=== PATIENT | female | born 1995 | race Caucasian/White ===

== ENCOUNTER 2025-04-23 08:23 | Outpatient (AMB) | payer OTHER, SELFPAY ==
--- NOTE | 2025-04-23 09:16 | A.OFFVIS_ITS ---
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 60.8: Details: Start time: 9.03am, End time: 9.56am ?I spent 48 minutes speaking with the patient on the phone plus an additional 5 minutes reviewing and updating records for a total of 53 minutes HPI Comments Details: Previous weight loss efforts: exercise, Mehdi for 4mths: no weight loss, Zepbound: 20lbs stopped to GI side effects) Wakes up: 6am -9am, Sleeps: 9.30am to 12am Breakfast: 8.30am (eggs and pine apple) Lunch: 12.30pm (turkey sandwich) Dinner: 6-7.30pm (chicken, salmon, shrimp, rice, potatoes, vegetables) Snacks: 3-4pm (chips, grapes, cheese), 8pm (ice cream) Exercise: has home treadmill (no incline, does not track calories) Beverages: Coffee (1 cup/d with creamer), Tea: (1 cup/day, plain), Soda: rarely Sprite zero, Juice: none, ETOH: 1-2/mth [facility] Medical History (Updated 04/23/25 @ 09:24 by Lamont Sanchez MD) DJD (degenerative joint disease) Obstructive sleep apnea on CPAP Anxiety Depression Morbid obesity Surgical History (Updated 04/09/25 @ 09:21 by Kristen Taylor CMA) No history of previous surgery Family History (Updated 04/09/25 @ 08:29 by Kristen Taylor CMA) Mother Hypothyroid Diabetes Father No problems noted. Social History (Updated 04/09/25 @ 08:29 CHIQUIS Petit Alcohol intake: current Alcohol intake frequency: a few times a month Patient Tobacco Use Status: Never used Tobacco Telehealth Telehealth Telehealth Platform: Telephone Location of provider rendering services: practice address Location of patient: address on file Patient Identification confirmed using: Name, : Yes Telehealth method: voice only Patient verbally consented to treatment: Yes Patient verbally consented to billing insurance company: Yes Patient informed of any privacy concerns related to visit: Yes Minutes spent on Phone/Video with Pt.: 53 Assessment & Plan Assessment & Plan (1) Morbid obesity: Code(s): E66.01 - Morbid (severe) obesity due to excess calories Category: Medical Plan: 1.? Plan for lap sleeve gastrectomy. If diaphragmatic or ventral hernias are present at time of surgery, these will be repaired laparoscopically as well. I emphasized the importance of close follow-up, adherence to instructions and good communication. The surgery does not replace the need to change your lifestlyle which is the cause of the obesity problem. The surgery provides the motivation to try again to change your lifestyle, it reduces the appetite and make the transition to a better lifestyle easier and doubles the amount of weight you would lose compared to doing the lifestyle change without the surgery. You will need to be on a liquid diet with protein shakes for 2 weeks before surgery to maximize weight loss and boost your nutritional status to recover better from surgery and also for the first two weeks after surgery to let the stomach heal before we introduce other foods. After the first 2 weeks we will introduce protein bars and soft foods like scrambled eggs, cottage cheese and yogurt and after the 6th week will introduce meat, fish and cooked vegetables in small amounts. Over time you should be able to eat everything in small amounts. Side effects like nausea, vomiting, heartburn or abdominal pain are not common in the practice unless you are not following in the practice. This operation requires lifetime commitment to following in our practice and communication with me. You will much less weight and experience side effects if you don?t communicate or not following in the practice. Complications are rare and in our practice is about 1/10 of the national average. However, you can develop bleeding that may require transfusion (hasn?t happened for year in the practice), you may from complications (we did not have any deaths in the practice) and infections. Infections are usually a result of breakdown in communication or not understanding or following directions correctly. They are difficult to treat, they can happen during the first 6 weeks, they may require to be in the hospital for weeks or even months, not being able to eat by mouth and you may have drains and surgeries to try and correct the issue. Other risks and complications include possible conversion to an open procedure, leaks, small bowel obstruction, blood clots, cardiac, or pulmonary complications, as truck terminal manager complications such as ulcers, insufficient weight loss and vitamin deficiencies. 2. You will receive a link of our software vishal to generate an individualized nutritional and exercise plan specific for you. Please send me a screenshot of the plans you will generate Meal to include lean meat (beef, fish, pork, turkey, chicken), or cape verdean yogurt, or egg whites, or beans with a salad with olive oil and fruits (berries, pears, apples, kiwi). Avoid salt, breads, potatoes, rice, pasta, desserts. ?3. If you choose shakes, each shake would be drunk slowly, like coffee in a period of 2 hours. ?4. If you choose bars, cut each bar in 4 pieces and eat each piece in 30min ?to make each bar last 2 hours. Try the Barebell or 16gr Fit Crunch protein bars. ?5. I emphasized the importance of measuring accurately the food portion and measure it when serving the food in plate ?6. The meal portions include a specific number of forks of meat and salad. You always eat the meat portion but you can replace up to half of salad/vegetables portion with rice, potatoes or pasta, or a fruit ?if you like. The less you do it the better weight loss will be. ?7. One full-size fork is what it can be scooped on the fork without falling aside and not what can be bit with the fork. Use regular forks like those you find in a typical restaurant. ?8.? Please buy the body composition scale we discussed and send me weight measurements as soon as possible and then once a week. Always include your diet and exercise plan. 9. The best choice would be to purchase a stationary bike, elliptical or treadmill at home that can track calories. If you use your home walking pad, choose the option outside walking in the vishal. If you go to the gym, you can select from the vishal any aerobic machine you want to use. You can create and exercise plan with the [employer] vishal. ?10.?It is important of avoiding and for at least 18 months postoperatively and has been discussed at the infosession. ?11. Goal is to lose at least 1.5-2lbs per week ?12. Goal to lose 10% of your weight before surgery, which is about 43lbs. Ultimate weight goal: 300lbs before surgery 13. Please follow the diet plan exactly without any change. If you don't like s luis about the plan or you feel hungry you need to communicate with me so I can help you revise the plan. You should not change the plan yourself. 14. To be scheduled for EGD to assess the stomach?s anatomy. The possibility of biopsies was discussed. Patient needs to avoid use of NSAIDs and aspirin for 1 week prior to EGD. You must be on liquids only the day before your endoscopy. Risks of perforation and bleeding was discussed with the patient. This will be an outpatient procedure with IV sedation. 15. Please do the following test: Check your heart rate at rest (at your sleep). Walk for exactly one mile distance as fast as you can and check your heart rate again as soon as you complete the mile walk. Text me the heart rate at rest and after the walk and the time in minutes and seconds that took you to complete the mile walk. You can use your smartphone's stopwatch to track accurately the time it took to walk the mile.
[2025-04-23 09:30] VITALS: BMI 60.8
== END 2025-04-23 09:57 | disposition home or self-care (01) ==
LOC: HO.HBS 08:23
PROVIDERS: PCP Nurse Practitioner Family; Visit Provider Surgery
DX: E66.01 Morbid (severe) obesity due to excess calories (principal); Z68.44 Body mass index [BMI] 60.0-69.9, adult
CPT/HCPCS: 99204

== ENCOUNTER 2025-05-09 09:47 | Outpatient (AMB) | payer OTHER, SELFPAY ==
--- NOTE | 2025-05-09 10:03 | MHC.WMTHER ---
Intake Intake Visit Reasons: OV BH Intake Allergies Seasonal Allergies Allergy (Mild, Verified 04/23/25 09:20) [facility] Medical History (Updated 05/09/25 @ 13:10 by Aggie Dempsey [facility]) DJD (degenerative joint disease) Obstructive sleep apnea on CPAP Anxiety Depression Morbid obesity Surgical History (Updated 04/09/25 @ 09:21 by Kristen Taylor CMA) No history of previous surgery Family History (Updated 04/09/25 @ 08:29 by Kristen Taylor CMA) Mother Hypothyroid Diabetes Father No problems noted. Social History (Updated 04/09/25 @ 08:29 by Kristen Taylor CMA) Alcohol intake: current Alcohol intake frequency: a few times a month Patient Tobacco Use Status: Never used Tobacco Behavioral Health Assessment Weight Management Therapy Therapy Notes Details The patient is a 30-year-old female presenting for her initial behavioral health assessment as part of the preoperative evaluation for a surgical weight loss program. She was referred by a friend who previously underwent weight loss surgery and reports a strong desire to take her health more seriously. The patient cites a significant family history of heart disease and expresses motivation to improve her overall health, increase longevity, and enhance her mental well-being. Presenting Concerns Referral Source WMP-Provider Reason for referral Completion of behavioral health assessment as part of process for weight-loss surgery. Precipitating Event Obesity. Living Situation Current Living Situation Relative's/Guardian's [place]ah and Rent At risk of losing current housing? No Satisfied with current living situation? Yes Comments PT rents a room at her mom's home. PT lives with her moms only and 3 cats and a dog. Food/Weight/Diet History/Relationship with weight Pt reports she has been plus size her whole life. Remembers she was around 187Lbs Lbs around age 18. In the last 10 years her lowest was 185-200Lbs, highests 365Lbs around covid. On her father's side of the family morbid obesity runs, her mother is was obese, dx with Type 2 diabetes but has been losing weight w/ help of GLP-1 meds (renee) History/Relationship with dieting Weight watchers, self-diets, intermittent fasting, gym. [place], didn;t loss weight. [place], 2023 for about 7months, lost 20Lbs. HAs been able to maintain this lost. Social History Family history and relationship PT is single, no kids. Parents alive, parents never , when she was 1. Currently don't have contact with him. Pt lives with her mom, he's an only child and they're very close. She has a very small family on her mother's side, all women and very close. Parental/Familial laborer orchard obligations None at this time. Last year she was on her grandmother's hospice team. Developmental history and status None reported Social support Mother, close friend from 20 years, maternal family. Community support Therapist and prescriber. Co-workers. Judaism/Spirituality None Cultural/Ethnic information . Legal Involvement and History Current or historical involvement with the legal system? None reported. Education Highest grade completed 1 year of college. Preferred learning style Visual Currently enrolled in educational program? No Interested in further educational program? 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 Financial Situation Describe current financial situation Comfortable Financial assistance? None Service Service? No Mental Health and Addiction Treatment Comments Alcohol: Cigarettes/Tobacco: Cannabis/Edibles: smoke, edibles, 3-4 times at week. Psychiatric history The patient is currently engaged in biweekly counseling and receives medication management every 1?3 months through spring. Diagnoses include generalized anxiety disorder, attention-deficit/hyperactivity disorder, and major depressive disorder. Formal psychological testing has been completed to characterize ADHD-related impairments. The current medication is bupropion 150 mg daily, started two months ago. Last year, the patient experienced panic attacks triggered by high stress and was prescribed lorazepam, hydroxyzine, and SSRIs. The primary care provider previously diagnosed a mood disorder and prescribed quetiapine and SSRIs. There is no history of psychiatric hospitalization, and the patient denies suicidal ideation, suicide attempts, self-harm, or harm to others. Medical and Physical Health Summary Additional Medical History not covered in history Endometriosis Sexual History concerns None reported. Physical exam in the last year? Yes Pain Screening Current pain? No Pain in the last few months? Yes Medications Is the patient compliant with medications? Yes (Not on Zepbound, denied by insurance. ) Does the patient have [place] Guardian in place? Not applicable Does the patient use complimentary health approaches? No Trauma/Abuse History History of trauma? Yes (ML: 4) Questionnaires PHQ-9 Over the last 2 weeks, how often have you been bothered by any of the following problems? 1. Little interest or pleasure in doing things: several days 2. Feeling down, depressed, or hopeless: several days 3. Trouble falling or staying asleep, or sleeping too much: more than half the days 4. Feeling tired or having little energy: more than half the days 5. Poor appetite or overeating: nearly every day 6. Feeling bad about yourself - or that you are a failure or have let yourself or your family down: several days 7. Trouble concentrating on things, such as reading the newspaper or watching television: several days 8. Moving or speaking so slowly that other people could have noticed. Or the opposite - being so fidgety or restless that you have been moving around a lot more than usual: not at all 9. Thoughts that you would be better off or of hurting yourself in some way: not at all Total score: 11 Depression Screening Interpretation: Positive (From new Pt pack - ) Depression Screening Follow-up: Existing condition and In treatment Depression Screening Done: Yes Source: Developed by Drs. Abdi Thakur, Cherelle Retana, Yunier Gonzalez and colleagues, with an educational lucine from [employer]. Binge Eating Scale Group 1 A. I don't feel self-conscious about my wt. or body size when I'm with others. B. I feel concerned about how I look to others, but it normally does not make me fell disappointed with myself C. I do get self-conscious about my appearance and wt. which makes me feel disappointed in myself. D. I feel very self-conscious about my wt. and frequently I feel intense shame and disgust for myself. I try to avoid social contacts because of my self-consciousness. Response Group 1: C Group 2 A. I don't have any difficulty eating slowly in the proper manner. B. Although I seem to gobble down foods, I don't end up feeling stuffed because of eating to much. C. At times, I tend to eat quickly and then, I feel uncomfortably full afterwards. D. I have the habit of bolting down my food, without really chewing it. When this happens I usually feel uncomfortably stuffed because I've eaten to much. Response Group 2: C Group 3 A. I feel capable to control my eating urges when I want to. B. I feel like I have failed to control my eating more than the average person. C. I feel utterly helpless when it comes to feeling in control of my eating urges. D. Because I feel so helpless about controlling my eating I have become very desperate about trying to get control. Response Group 3: B Group 4 A. I don't have the habit of eating when I'm bored. B. I sometimes eat when I'm bored, but often I'm able to get busy and get my mind off food. C. I have a regular habit of eating when I'm bored, but occasionally, I can use some other activity to get my mind off eating. D. I have a strong habit of eating when I'm bored. Nothing seems to help me breath the habit. Response Group 4: B Group 5 A. I'm usually physically hungry when I eat something. B. Occasionally, I eat something on impulse even though I really am not hungry. C. I have the regular habit of eating foods, that I might not really enjoy, to satisfy a hungry feeling even though physically, I don't need the food. D. Although I'm not physically hungry, I get a hungry feeling in my mouth that only seems to be satisfied when I eat a food, like sandwich, that fills my mouth. Sometimes, when I eat the food to satisfy my mouth hunger, I then spit the food out so I won't gain weight. Response Group 5: B Group 6 A. I don't feel any guilt or self-hate after I overeat. B. After I overeat, occasionally I feel guilt or self-hate. C. Almost all the time I experience strong guilt or self-hate after I overeat. Response Group 6: B Group 7 A. I don't lose total control of my eating when dieting even after periods when I overeat. B. Sometimes when I eat a forbidden food on a diet, I feel like I blew it and eat even more. C. Frequently, I have the habit of saying to myself, I've blown it now, why not go all the way, when I overeat on a diet. When that happens I eat more. D. I have a regular habit of starting a strict diets for myself but I break the diets by going on an eating binge. My life seems to be either a feast or famine. Response Group 7: B Group 8 A. I rarely eat so much food that I feel uncomfortably stuffed afterwards. B. Usually about once a month, I each such a quantity of food, I end up feeling very stuffed. C. I have regular periods during the month when I eat large amounts of food, either at mealtime or at snacks. D. I eat so much food that I regularly feel quite uncomfortable after eating and sometimes a bit nauseous. Response Group 8: B Group 9 A. My level of calorie intake does not go up very high or go down very low on a regular basis. B. Sometimes after I overeat, I will try to reduce my caloric intake to almost nothing to compensate for the excess calories I've eaten. C. I have a regular habit of overeating during the night. It seems that my routine is not to be hungry in the morning but overeat in the evening. D. In my adult years, I have had week-long periods where I practically starve myself. This follows periods when I overeat. It seems I live a life of either feast or famine. Response Group 9: A Group 10 A. I usually am able to stop eating when I want to. I know when enough is enough. B. Every so often, I experience a compulsion to eat which I can't seem to control. C. Frequently, I experience strong urges to eat which I seem unable to control, but at other times I can control my eating urges. D. I feel incapable of controlling urges to eat. I have a fear of not being able to stop eating voluntarily. Response Group 10: B Group 11 A. I don't have any problem stopping eating when I feel full. B. I usually can stop eating when I feel full but occasionally overeat leaving me feeling uncomfortably stuffed. C. I have a problem stopping eating once I start and usually I feel uncomfortably stuffed after I eat a meal. D. Because I have a problem not being able to stop eating when I want, I sometimes have to induce vomiting to relieve my stuffed feeling. Response Group 11: B Group 12 A. I seem to eat just as much when I'm with others, Family social gatherings as when I'm by myself. B. Sometimes, when I'm with other persons, I don't eat as much as I want to eat because I'm self-conscious about my eating. C. Frequently, I eat only a small amount of food when others are present, because I'm very embarrassed about my eating. D. I feel so ashamed about overeating that I pick times to overeat when I know no one will see me. I feel like a closet eater. Response Group 12: A Group 13 A. I eat three meals a day with only an occasional between meal snack. B. I eat 3 meals a day, but I also normally snack between meals. C. When I am snacking heavily, I get in the habit of skipping regular meals. D. There are regular periods when I seem to be continually eating, with no planned meals. Response Group 13: C Group 14 A. I don't think much about trying to control unwanted eating urges. B. At least some of the time, I feel my thoughts are pre-occupied with trying to control my eating urges. C. I feel that frequently I spend much time thinking about how much I ate or about trying not to eat anymore. D. It seems to me that most of my waking hours are pre-occupied by thoughts about eating or not eating. I feel like I'm constantly struggling not to eat. Response Group 14: B Group 15 A. I don't think about food a great deal. B. I have strong craving for food but they last only for brief periods of time. C. I have days when I can't seem to think about anything else but food. D. Most of my days seem to be pre-occupied with thoughts about food. I feel like I live to eat. Response Group 15: B Group 16 A. I usually know whether or not I'm physically hungry. I take the right portion of food to satisfy me. B. Occasionally, I feel uncertain about knowing whether or not I'm physically hungry. A these times it's hard to know how much food I should take to satisfy me. C. Even though I might know how many calories I should eat, I don't have any idea what is a normal amount of food for me. Response Group 16: B Binge Eating Score: 17 Score less than 17 Minimal Risk Score between 18-26 Moderate Risk Score between 27-46 High Risk Assessment & Plan Assessment & Plan (1) Depression: Code(s): F32.A - Depression, unspecified Qualifiers: Depression Type: unspecified Qualified Code(s): F32.A - Depression, unspecified (2) Generalized anxiety disorder with panic attacks: Code(s): F41.1 - Generalized anxiety disorder; F41.0 - Panic disorder [episodic paroxysmal anxiety] (3) ADHD (attention deficit hyperactivity disorder): Code(s): F90.9 - Attention-deficit hyperactivity disorder, unspecified type Qualifiers: Attention deficit-hyperactivity disorder type: unspecified Qualified Code(s): F90.9 - Attention-deficit hyperactivity disorder, unspecified type (4) Pre-bariatric surgery psychological evaluation: Code(s): Z71.89 - Other specified counseling Plan The patient was not cleared today as the assessment was not completed. The patient will return in 2-4 weeks to continue the evaluation. Next appointment: 05/26/25 at 2pm for intake part 2. via Telehealth Coding Level of Care Code New Pt Psy Diag [place] ([id number]) Patient Type New Diagnoses Depression, unspecified depression type F32.A Depression Type: unspecified Generalized anxiety disorder with panic attacks F41.1; F41.0 Attention deficit hyperactivity disorder (ADHD), unspecified ADHD type F90.9 Attention deficit-hyperactivity disorder type: unspecified Pre-bariatric surgery psychological evaluation Z71.89 Time Spent (min) 70
--- OUTSIDE RECORDS SUMMARY | 2025-05-09 11:03 | XMS_ITS | Clinical Summary ---
Author Organization [facility] Address [address] [place] [address] Care Team Providers Care Bar Manager Name Role Phone Unavailable Primary Care Provider Unavailabl e Allergies No known active allergies Medications loratadine (CLARITIN) 10 mg tablet Take 10 mg by mouth daily. Active Social History Tobacco Use Types Packs/Day Years Used Date Smoking Tobacco: Never Assessed Interpersonal Safety Answer Date Record ed Physically Hurt Never 02/17/2020 Verbally Threaten Not on file 02/17/2020 Comments Unknown Sex and Gender Information Value Date Recorded Sex Assigned at Not on file Legal Sex Female 19:58 EDT Gender Identity Not on file Sexual Orientation Not on file Last Filed Vital Signs Vital Sign Reading Time Taken Comments Blood Pressure 118/60 03/19/2018 2200 EDT Pulse 83 03/19/2018 2200 EDT Temperature 37 C (98.6 F) 03/19/20182009 EDT Respiratory Rate 16 03/19/20180 EDT Oxygen Saturation 100% 03/19/20182199 EDT Inhaled Oxygen Concentration - - Weight 122.5 kg (270 lb) 03/19/20182009 EDT Height 160 cm (5' 3 ) 03/19/20182009 EDT Body Mass Index 47.83 03/19/20182009 EDT Plan of Treatment Health Maintenance Due Date Last Done Comments Hepatitis C Screen 1993 Hepatitis B Vaccine (1 of 3 - 19+ 3-dose series) 03/26 COVID-19 Vaccine ( - season) 2025
== END 2025-05-09 11:12 | disposition home or self-care (01) ==
LOC: HO.HBST 09:48
PROVIDERS: PCP Nurse Practitioner Family; Visit Provider Counselor Mental Health
DX: F32.A Depression, unspecified (principal); F41.1 Generalized anxiety disorder; F41.0 Panic disorder [episodic paroxysmal anxiety]; F90.9 Attention-deficit hyperactivity disorder, unspecified type; Z71.89 Other specified counseling
CPT/HCPCS: 90791

== ENCOUNTER 2025-06-09 09:35 | Outpatient (AMB) | payer OTHER, SELFPAY ==
--- NOTE | 2025-06-09 09:00 | A.OFFWM_ITS ---
Intake Intake Visit Reasons: VIDEO BH Intake Part 2 (F/U) Allergies Seasonal Allergies Allergy (Mild, Verified 04/23/25 09:20) Runny Nose [employer] Medical History (Updated 05/09/25 @ 13:10 by Aggie Dempsey [facility]) DJD (degenerative joint disease) Obstructive sleep apnea on CPAP Anxiety Depression Morbid obesity Surgical History (Updated 04/09/25 @ 09:21 by Kristen Taylor CMA) No history of previous surgery Family History (Updated 04/09/25 @ 08:29 by Kristen Taylor CMA) Mother Hypothyroid Diabetes Father No problems noted. Social History (Updated 04/09/25 @ 08:29 by Kristen Taylor CMA) Alcohol intake: current Alcohol intake frequency: a few times a month Patient Tobacco Use Status: Never used Tobacco Behavioral Health Assessment Weight Management Therapy Therapy Notes Details The patient is a 30-year-old female presenting for her second visit to complete a behavioral health assessment as part of her preoperative evaluation for a surgical weight loss program. She was referred by a friend who previously underwent weight loss surgery and reports a strong desire to prioritize her health. The patient cites a significant family history of heart disease and expresses motivation to improve her overall health, increase longevity, and enhance her mental well-being. During the visit, the patient reported difficulty consuming the prescribed protein shake slowly, acknowledging that she needs to improve her discipline around eating behaviors. We discussed strategies to support the development of healthy habits and the importance of mindful eating as she prepares for surgery. Plans were made to continue meeting to reinforce these skills and provide ongoing support throughout her weight loss journey. The patient was also advised to follow up with her surgeon and provide an update on her progress. Presenting Concerns Referral Source WMP-Provider Reason for referral Completion of behavioral health assessment as part of process for weight-loss surgery. Precipitating Event Obesity. Living Situation Current Living Situation Relative's/Guardian's [place]urah and Rent At risk of losing current housing? No Satisfied with current living situation? Yes Comments PT rents a room at her mom's home. PT lives with her moms only and 3 cats and a dog. Food/Weight/Diet Expectations of change PT started the program at 343Lbs, and the initial goal is to lose 10% of their weight before surgery, which is about 43lbs. Ultimate weight goal: 300lbs before surgery. PT reports her recent weight is 330 lbs. Patient would like to be under 200Lbs. But she mainly wants to work on prioritizing health. PT is implementing the following: Current meal plan: Exercise plan: 4 days at week - cardio, burning scale: yes Communication with surgeon: Mondays. - She hasn't communicated in over 3 weeks. History/Relationship with food PT reports that when she eats meals, her portions are bigger than they should be. 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 PT denies stress eating. Tendency to not eat during the day, then eat at lot in a short period of time. If too hungry, then would eat fast, Example of meals before starting the program: Breakfast: 8.30am (eggs and pineapple) Lunch: 12.30pm (turkey sandwich) Dinner: 6-7.30pm (chicken, salmon, shrimp, rice, potatoes, vegetables) Snacks: 3-4pm (chips, grapes, cheese), 8pm (ice cream) Beverages: Coffee (1 cup/d with creamer), Tea: (1 cup/day, plain), Soda: rarely Sprite zero, Juice: none, ETOH: 1-2/mth History/Relationship with weight Pt reports she has been plus size her whole life. Remembers she was around 187Lbs Lbs around age 18. In the last 10 years her lowest was 185-200Lbs, highests 365Lbs around covid. On her father's side of the family morbid obesity runs, her mother is was obese, dx with Type 2 diabetes but has been losing weight w/ help of GLP-1 meds (renee) History/Relationship with dieting Weight watchers, self-diets, intermittent fasting, gym. [place], didn;t loss weight. [place], 2023 for about 7months, lost 20Lbs. HAs been able to maintain this lost. Binge Eating Do you frequently eat large amounts of food in short periods of time, not feeling physically hungry? No Do you feel out of control when you eat a large amount of food in a short period of time? No Do you eat large amounts of food rapidly and typically alone? No Night Eating Do you wake up at least once during the night to eat? No If you wake up in the night, do you find that it is necessary to eat something in order to fall back asleep? No Do you have little or no appetite in the morning and feel very hungry in the evening, often overeating between dinner and when you go to bed? Yes Social History Family history and relationship PT is single, no kids. Parents alive, parents never , when she was 1. Currently don't have contact with him. Pt lives with her mom, he's an only child and they're very close. She has a very small family on her mother's side, all women and very close. Parental/Familial time study engineer obligations None at this time. Last year she was on her grandmother's hospice team. Developmental history and status None reported Social support Mother, close friend from 20 years, maternal family. Community support Therapist and prescriber. Co-workers. Anglican/Spirituality None Cultural/Ethnic information . Legal Involvement and History Current or historical involvement with the legal system? None reported. Education Highest grade completed 1 year of college. Preferred learning style Visual Currently enrolled in educational program? No Interested in further educational program? 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 Financial Situation Describe current financial situation Comfortable Financial assistance? None Service Service? No Mental Health and Addiction Treatment Current/Past substance abuse? Yes Comments Alcohol: 1x month Cigarettes/Tobacco: none. Cannabis/Edibles: smoke, edibles, 3-4 times at week. Current/Past addictive behavior concerns? No Psychiatric history The patient is currently engaged in biweekly counseling and receives medication management every 1?3 months through spring. Diagnoses include generalized anxiety disorder, attention-deficit/hyperactivity disorder, and major depressive disorder. Formal psychological testing has been completed to characterize ADHD-related impairments. The current medication started 2 months ago, but was recently increased. Bupropion 300 mg daily (recently increased from 150mg). Last year, the patient experienced panic attacks triggered by high stress and was prescribed lorazepam, hydroxyzine, and SSRIs. The primary care provider previously diagnosed a mood disorder and prescribed quetiapine and SSRIs. There is no history of psychiatric hospitalization, and the patient denies suicidal ideation, suicide attempts, self-harm, or harm to others. Medical and Physical Health Summary Additional Medical History not covered in history Endometriosis Sexual History concerns None reported. Physical exam in the last year? Yes Pain Screening Current pain? No Pain in the last few months? Yes Medications Is the patient compliant with medications? Yes (Not on Zepbound, denied by insurance. ) Does the patient have [place] Guardian in place? Not applicable Does the patient use complimentary health approaches? No Trauma/Abuse History History of trauma? Yes (ML: 4) Questionnaires PHQ-9 Over the last 2 weeks, how often have you been bothered by any of the following problems? 1. Little interest or pleasure in doing things: not at all 2. Feeling down, depressed, or hopeless: not at all 3. Trouble falling or staying asleep, or sleeping too much: several days 4. Feeling tired or having little energy: several days (Due to illness.) 5. Poor appetite or overeating: not at all 6. Feeling bad about yourself - or that you are a failure or have let yourself or your family down: several days 7. Trouble concentrating on things, such as reading the newspaper or watching television: not at all 8. Moving or speaking so slowly that other people could have noticed. Or the opposite - being so fidgety or restless that you have been moving around a lot more than usual: not at all 9. Thoughts that you would be better off or of hurting yourself in some way: not at all Total score: 3 Depression Screening Interpretation: Negative Depression Screening Done: Yes 99128 - PHQ-9 Billing: Yes Source: Developed by Drs. Abdi Thakur, Cherelle Retana, Yunier Gonzalez and colleagues, with an educational lucien from [employer]. Binge Eating Scale Group 1 A. I don't feel self-conscious about my wt. or body size when I'm with others. B. I feel concerned about how I look to others, but it normally does not make me fell disappointed with myself C. I do get self-conscious about my appearance and wt. which makes me feel disappointed in myself. D. I feel very self-conscious about my wt. and frequently I feel intense shame and disgust for myself. I try to avoid social contacts because of my self- consciousness. Response Group 1: C Group 2 A. I don't have any difficulty eating slowly in the proper manner. B. Although I seem to gobble down foods, I don't end up feeling stuffed because of eating to much. C. At times, I tend to eat quickly and then, I feel uncomfortably full afterwards. D. I have the habit of bolting down my food, without really chewing it. When this happens I usually feel uncomfortably stuffed because I've eaten to much. Response Group 2: C Group 3 A. I feel capable to control my eating urges when I want to. B. I feel like I have failed to control my eating more than the average person. C. I feel utterly helpless when it comes to feeling in control of my eating urges. D. Because I feel so helpless about controlling my eating I have become very desperate about trying to get control. Response Group 3: B Group 4 A. I don't have the habit of eating when I'm bored. B. I sometimes eat when I'm bored, but often I'm able to get busy and get my mind off food. C. I have a regular habit of eating when I'm bored, but occasionally, I can use some other activity to get my mind off eating. D. I have a strong habit of eating when I'm bored. Nothing seems to help me breath the habit. Response Group 4: B Group 5 A. I'm usually physically hungry when I eat something. B. Occasionally, I eat something on impulse even though I really am not hungry. C. I have the regular habit of eating foods, that I might not really enjoy, to satisfy a hungry feeling even though physically, I don't need the food. D. Although I'm not physically hungry, I get a hungry feeling in my mouth that only seems to be satisfied when I eat a food, like sandwich, that fills my mouth. Sometimes, when I eat the food to satisfy my mouth hunger, I then spit the food out so I won't gain weight. Response Group 5: B Group 6 A. I don't feel any guilt or self-hate after I overeat. B. After I overeat, occasionally I feel guilt or self-hate. C. Almost all the time I experience strong guilt or self-hate after I overeat. Response Group 6: B Group 7 A. I don't lose total control of my eating when dieting even after periods when I overeat. B. Sometimes when I eat a forbidden food on a diet, I feel like I blew it and eat even more. C. Frequently, I have the habit of saying to myself, I've blown it now, why not go all the way, when I overeat on a diet. When that happens I eat more. D. I have a regular habit of starting a strict diets for myself but I break the diets by going on an eating binge. My life seems to be either a feast or famine. Response Group 7: B Group 8 A. I rarely eat so much food that I feel uncomfortably stuffed afterwards. B. Usually about once a month, I each such a quantity of food, I end up feeling very stuffed. C. I have regular periods during the month when I eat large amounts of food, either at mealtime or at snacks. D. I eat so much food that I regularly feel quite uncomfortable after eating and sometimes a bit nauseous. Response Group 8: B Group 9 A. My level of calorie intake does not go up very high or go down very low on a regular basis. B. Sometimes after I overeat, I will try to reduce my caloric intake to almost nothing to compensate for the excess calories I've eaten. C. I have a regular habit of overeating during the night. It seems that my routine is not to be hungry in the morning but overeat in the evening. D. In my adult years, I have had week-long periods where I practically starve myself. This follows periods when I overeat. It seems I live a life of either feast or famine. Response Group 9: A Group 10 A. I usually am able to stop eating when I want to. I know when enough is enough. B. Every so often, I experience a compulsion to eat which I can't seem to control. C. Frequently, I experience strong urges to eat which I seem unable to control, but at other times I can control my eating urges. D. I feel incapable of controlling urges to eat. I have a fear of not being able to stop eating voluntarily. Response Group 10: B Group 11 A. I don't have any problem stopping eating when I feel full. B. I usually can stop eating when I feel full but occasionally overeat leaving me feeling uncomfortably stuffed. C. I have a problem stopping eating once I start and usually I feel uncomfortably stuffed after I eat a meal. D. Because I have a problem not being able to stop eating when I want, I sometimes have to induce vomiting to relieve my stuffed feeling. Response Group 11: B Group 12 A. I seem to eat just as much when I'm with others, Family social gatherings as when I'm by myself. B. Sometimes, when I'm with other persons, I don't eat as much as I want to eat because I'm self-conscious about my eating. C. Frequently, I eat only a small amount of food when others are present, because I'm very embarrassed about my eating. D. I feel so ashamed about overeating that I pick times to overeat when I know no one will see me. I feel like a closet eater. Response Group 12: A Group 13 A. I eat three meals a day with only an occasional between meal snack. B. I eat 3 meals a day, but I also normally snack between meals. C. When I am snacking heavily, I get in the habit of skipping regular meals. D. There are regular periods when I seem to be continually eating, with no planned meals. Response Group 13: C Group 14 A. I don't think much about trying to control unwanted eating urges. B. At least some of the time, I feel my thoughts are pre-occupied with trying to control my eating urges. C. I feel that frequently I spend much time thinking about how much I ate or about trying not to eat anymore. D. It seems to me that most of my waking hours are pre-occupied by thoughts about eating or not eating. I feel like I'm constantly struggling not to eat. Response Group 14: B Group 15 A. I don't think about food a great deal. B. I have strong craving for food but they last only for brief periods of time. C. I have days when I can't seem to think about anything else but food. D. Most of my days seem to be pre-occupied with thoughts about food. I feel like I live to eat. Response Group 15: B Group 16 A. I usually know whether or not I'm physically hungry. I take the right portion of food to satisfy me. B. Occasionally, I feel uncertain about knowing whether or not I'm physically hungry. A these times it's hard to know how much food I should take to satisfy me. C. Even though I might know how many calories I should eat, I don't have any idea what is a normal amount of food for me. Response Group 16: B Binge Eating Score: 17 Score less than 17 Minimal Risk Score between 18-26 Moderate Risk Score between 27-46 High Risk Assessment & Plan Assessment & Plan (1) Depression: Code(s): F32.A - Depression, unspecified Qualifiers: Depression Type: unspecified Qualified Code(s): F32.A - Depression, unspecified (2) Generalized anxiety disorder with panic attacks: Code(s): F41.1 - Generalized anxiety disorder; F41.0 - Panic disorder [episodic paroxysmal anxiety] (3) ADHD (attention deficit hyperactivity disorder): Code(s): F90.9 - Attention-deficit hyperactivity disorder, unspecified type (4) Pre-bariatric surgery psychological evaluation: Code(s): Z71.89 - Other specified counseling Plan Following a comprehensive behavioral health assessment, the patient has been cleared from a behavioral health perspective and is eligible to proceed with submission for insurance approval when ready. She will be scheduled for a follow-up appointment in two months to provide ongoing support. * Next appointment:?August 04, 2024, at 9:00 AM via video. Telehealth Telehealth Telehealth Platform: [facility] Location of provider rendering services: other (Home office. [place], [place]) Location of patient: address on file Patient Identification confirmed using: Name, : Yes Telehealth method: video Patient verbally consented to treatment: Yes Patient verbally consented to billing insurance company: Yes Patient informed of any privacy concerns related to visit: Yes Minutes spent on Phone/Video with Pt.: 60 Coding [place] [id number] Tele Psytx >53 mins Patient Type Established Diagnoses Depression, unspecified depression type F32.A Depression Type: unspecified Generalized anxiety disorder with panic attacks F41.1; F41.0 ADHD (attention deficit hyperactivity disorder) F90.9 Pre-bariatric surgery psychological evaluation Z71.89 Additional Codes PHQ-9 - 99602 - PHQ-9 Billing: Yes ([id number]) Time Spent (min) 60
--- OUTSIDE RECORDS SUMMARY | 2025-06-09 11:01 | XMS_ITS | Clinical Summary ---
Author Organization [facility] Address [address] [place] [address] Care Team Providers Care [employer] Stitcher Name Role Phone Unavailable Primary Care Provider [...]
== END 2025-06-09 10:07 | disposition home or self-care (01) ==
LOC: HO.HBST 09:35
PROVIDERS: PCP Nurse Practitioner Family; Visit Provider Counselor Mental Health
DX: F32.1 Major depressive disorder, single episode, moderate (principal); F41.1 Generalized anxiety disorder; F41.0 Panic disorder [episodic paroxysmal anxiety]; F90.9 Attention-deficit hyperactivity disorder, unspecified type; Z71.89 Other specified counseling
CPT/HCPCS: 90837

== ENCOUNTER 2025-07-03 10:00 | Outpatient (REF) | payer OTHER, SELFPAY ==
--- NOTE | ~2025-07-03 | XR_ITS ---
EXAMINATION: XR CHEST CLINICAL INFORMATION: OBESITY COMPARISON: None available. TECHNIQUE: 2 views of the chest were obtained. FINDINGS: No significant abnormality is noted involving the heart, lungs, mediastinum, bony thorax or soft tissues. XR/XR chest 2V IMPRESSION: Unremarkable examination. Electronically signed by: Ana Chun MD 07/03/2025 10:42 AM [facility]
== END 2025-07-03 10:01 ==
LOC: HO.XRAY 10:00
PROVIDERS: PCP Nurse Practitioner Family; Visit Provider Surgery
DX: G47.33 Obstructive sleep apnea (adult) (pediatric) (principal); E66.01 Morbid (severe) obesity due to excess calories; Z99.89 Dependence on other enabling machines and devices
CPT/HCPCS: 71046

== ENCOUNTER → 2025-07-03 10:03 | Outpatient (BNV) | payer OTHER, SELFPAY | PROVIDERS: PCP Nurse Practitioner Family; Visit Provider Radiology Diagnostic Radiology | DX: E66.9 Obesity, unspecified (principal); Z68.44 Body mass index [BMI] 60.0-69.9, adult | CPT/HCPCS: 71046 ==